=== PATIENT | male | born 1955 | race Caucasian/White ===

== ENCOUNTER 2017-05-16 12:07 | Inpatient (IN) | payer BC ==
[2017-05-16] MEDS: SOLU-Medrol 125 MG VIAL IVP SCH ×3 (14:16→21:48)
[2017-05-16 14:21] LABS: ABG BASE EXCESS 2.6 mmol/L (-2.0-2.0); ABG HCO3 27.9 mmol/L (22-26)
[2017-05-16 14:22] LABS: ABG ALLEN TEST POS
[2017-05-16 14:27] VITALS: BMI 30.8
[2017-05-16] MEDS: LEVAQUIN PREMIX IV 750 MG 750 MG/150 ML BAG IV SCH (15:04)
[2017-05-16] MEDS: NS 1000 ML 1,000 ML IV SCH (15:05)
[2017-05-16] MEDS: ROBITUSSIN DM PO SCH ×3 (15:05→20:12)
[2017-05-16 15:33] LABS: BASOPHILS % (AUTO) 0.6 % (0.2-1.0); EOSINOPHILS # (AUTO) 0.5 x10^3/uL (0.0-0.2); EOSINOPHILS % (AUTO) 7.4 % (0.9-2.9); HEMATOCRIT 44.6 % (42.0-54.0); LYMPHOCYTES # (AUTO) 2.1 X10^3/uL (1.3-2.9); LYMPHOCYTES % (AUTO) 28.8 % (21.0-51.0); MEAN CORPUSCULAR HEMOGLOBIN 27.7 pg (27.0-34.0); MEAN CORPUSCULAR HGB CONC 33.7 g/dL (33.0-35.0); MEAN CORPUSCULAR VOLUME 82.2 fL (80.0-100.0); MEAN PLATELET VOLUME 8.2 fL (7.4-11.0); MONOCYTES # (AUTO) 0.8 x10^3/uL (0.3-0.8); MONOCYTES % (AUTO) 10.7 % (0.0-13.0); NEUTROPHILS # (AUTO) 3.8 x10^3/uL (2.2-4.8); NEUTROPHILS % (AUTO) 52.5 % (42.0-75.0); PLATELET COUNT 194 X10^3/uL (150.0-450.0); RED BLOOD COUNT 5.42 X10^6/uL (4.7-6.0); RED CELL DISTRIBUTION WIDTH 14.2 % (11.6-16.5); WHITE BLOOD COUNT 7.3 X10^3/uL (3.6-10.0)
--- NOTE | 2017-05-16 15:39 | RAD ---
Examination: Chest, PA and lateral views History: Possible pneumonia, cough Findings: Heart size normal with clear right chest. Surgical findings of CABG. The left cardiac antionette n is indistinct and partly obscured. There is no consolidation, pneumothorax or large pleural effusio n. Impression: Postsurgical findings. Pulmonary distortion in the left lower lung may represent chronic scarring or a more acute process. Follow-up suggested to determine chronicity or resolution. Reported By:
[2017-05-16 15:42] LABS: ALANINE AMINOTRANSFERASE 51 Units/L (12-78); ALBUMIN 3.7 g/dL (3.4-5.0); ALKALINE PHOSPHATASE 172 Units/L (46-116); ASPARTATE AMINO TRANSFERASE 27 Units/L (15-37); BLOOD UREA NITROGEN 12 mg/dL (7-18); CALCIUM 8.6 mg/dL (8.5-10.1); CHLORIDE 102 mmol/L (98-107); COR NA(FOR HYPERGLY) 139 mmol/L (136-145); SODIUM 138 mmol/L (136-145); TOTAL PROTEIN 7.2 g/dL (6.4-8.2); eGFR BLACK RACES > 60 (>60); eGFR NON BLACK RACES > 60 (>60)
[2017-05-16] MEDS: XOPENEX 1.25 MG/3 ML NEBULE NEB SCH ×2 (16:06→21:29)
--- NOTE | 2017-05-16 19:42 | DR.H&P ---
H&P - History & Physical for Day of: H&P Date: 05/16/17 - Chief Complaint Chief Complaint: CCC, FEVER - Allergies Allergies/Adverse Reactions: Allergies Allergy/AdvReac Type Severity Reaction Status Date / Time No Known Drug Allergies Allergy Verified 05/16/17 14:03 - History of Present Illness History of Present Illness: 62 WM DIRECT ADMIT FROM DR EAST OFFICE WITH FEVER CCC FOR 2-3 WEEKS. PT TOOK ROUND OF PO ANTIBIOTICS AND HAD IM INJECTIONS WITHOUT IMPROVEMENT. PT CONITNUES TO COUGH AND WHEEZE WITH GENERALIZED. PT HAS PMH OF CAD. PLAN TO FOLLOW PNEUMONIA PROTOCOL, IV ATBX RESP THERAPY - Past Medical History Past Medical History: Coronary Artery Disease - Past Surgical History Surgical History: Cholecystectomy - Family History Family Medical History: Diabetes Mellitus, Cancer, [place], Coronary Artery Disease, Hypertension - Social History Does patient currently use any type of tobacco product: No Have you used tobacco products in the last 12 months: No Type of Tobacco Use: None Does any household member use tobacco: No Alcohol Use: None Drug Use: None - Medications Home Medications: Metoprolol Tartrate 0.5 tab PO BID 05/16/17 [History Confirmed 05/16/17] Omeprazole 2 cap PO DAILY 05/16/17 [History Confirmed 05/16/17] - Review of Systems Constitutional: Fever, Weakness Eyes: No Symptoms Reported ENT: No Symptoms Reported Respiratory: Cough, Shortness of Breath, SOB with Excertion, Wheezing Cardiovascular: No Symptoms Reported Gastrointestinal: No Symptoms Reported Genitourinary: No Symptoms Reported Musculoskeletal: No Symptoms Reported Skin: No Symptoms Reported Neurological: No Symptoms Reported - Physical Exam Vital Signs: Temperature 97.5 F Pulse Rate [Left] 82 Pulse Rate 73 Respiratory Rate 20 Blood Pressure [Left Arm] 136/65 O2 Sat by Pulse Oximetry 97 Oriented: Normal Eyes: Normal Ear: Normal Nose: Normal Throat: Normal Respiratory: Rhonchi Throughout, Wheezes Throughout, RLL Diminished, LLL Diminished Cardiovascular: Normal : Normal Auscultation: Bowel Sounds: Normal Palpation: Normal Tenderness: Normal Skin: Decreased Turgur Musculoskeletal: Normal Psychiatric: Anxiety Affect: Anxious Speech Pattern: Clear - Assessment/Plan (1) Pneumonia Status: Acute Plan: ADMIT IV ABTX, RESP THERAPY. BLOOD SPUTUM CULTURES. BP MONITORING. SUPPLEMENTAL O2,REPEAT AM LABS (2) CAD (coronary artery disease) Status: Acute
[2017-05-16] MEDS: LOPRESSOR TAB 25 MG PO SCH ×2 (20:12→21:16)
[2017-05-16] MEDS: PULMICORT NEB TX 0.5 MG NEB SCH (21:29)
[2017-05-16] MEDS: TUSSIONEX PENNKINETIC SUSP PO PRN (21:48)
[2017-05-16] MEDS: PriLOSEC PO SCH (22:04)
[2017-05-17] MEDS: SOLU-Medrol 125 MG VIAL IVP SCH ×3 (05:30→21:29)
[2017-05-17 05:37] LABS: BASOPHILS # (AUTO) 0.1 X10^3/uL (0.0-0.1); BASOPHILS % (AUTO) 1.5 % (0.2-1.0); EOSINOPHILS % (AUTO) 0.1 % (0.9-2.9); HEMATOCRIT 42.5 % (42.0-54.0); HEMOGLOBIN 14.3 g/dL (13.5-18.0); MEAN CORPUSCULAR HEMOGLOBIN 27.6 pg (27.0-34.0); MEAN CORPUSCULAR HGB CONC 33.6 g/dL (33.0-35.0); MEAN CORPUSCULAR VOLUME 82.2 fL (80.0-100.0); MEAN PLATELET VOLUME 8.2 fL (7.4-11.0); MONOCYTES # (AUTO) 0.1 x10^3/uL (0.3-0.8); MONOCYTES % (AUTO) 1.1 % (0.0-13.0); NEUTROPHILS # (AUTO) 7.7 x10^3/uL (2.2-4.8); NEUTROPHILS % (AUTO) 86.3 % (42.0-75.0); PLATELET COUNT 194 X10^3/uL (150.0-450.0); RED BLOOD COUNT 5.17 X10^6/uL (4.7-6.0); RED CELL DISTRIBUTION WIDTH 14.3 % (11.6-16.5); WHITE BLOOD COUNT 8.9 X10^3/uL (3.6-10.0)
[2017-05-17 05:49] LABS: ALANINE AMINOTRANSFERASE 42 Units/L (12-78); ALBUMIN 3.4 g/dL (3.4-5.0); ALKALINE PHOSPHATASE 157 Units/L (46-116); ASPARTATE AMINO TRANSFERASE 18 Units/L (15-37); BLOOD UREA NITROGEN 12 mg/dL (7-18); CALCIUM 8.3 mg/dL (8.5-10.1); CARBON DIOXIDE 25.6 mmol/L (21-32); CHLORIDE 101 mmol/L (98-107); COR NA(FOR HYPERGLY) 140 mmol/L (136-145); CREATININE 1.11 mg/dL (0.70-1.30); SODIUM 137 mmol/L (136-145); TOTAL PROTEIN 7.1 g/dL (6.4-8.2); eGFR BLACK RACES > 60 (>60); eGFR NON BLACK RACES > 60 (>60)
[2017-05-17] MEDS: LEVAQUIN PREMIX IV 750 MG 750 MG/150 ML BAG IV SCH (08:48)
[2017-05-17] MEDS: LOPRESSOR TAB 25 MG PO SCH ×2 (08:48→20:26)
[2017-05-17] MEDS: ROBITUSSIN DM PO SCH ×4 (08:48→20:25)
[2017-05-17] MEDS: TUSSIONEX PENNKINETIC SUSP PO PRN ×2 (08:48→22:04)
[2017-05-17] MEDS: XOPENEX 1.25 MG/3 ML NEBULE NEB SCH ×4 (09:26→21:39)
[2017-05-17] MEDS: PULMICORT NEB TX 0.5 MG NEB SCH ×2 (09:26→21:39)
[2017-05-17 10:30] LABS: MYCOPLASMA PNEUMONIAE IGM AB NEGATIVE (NEGATIVE)
[2017-05-17] MEDS ORDERED: MUCOMYST 20% 200 MG/ML NEB SCH (16:15)
[2017-05-17] MEDS: PriLOSEC PO SCH (16:45)
[2017-05-17] MEDS ORDERED: PriLOSEC PO SCH (17:30)
[2017-05-17] MEDS: MUCOMYST 20% 200 MG/ML NEB SCH (21:40)
[2017-05-18] MEDS: SOLU-Medrol 125 MG VIAL IVP SCH (05:07)
[2017-05-18 05:41] LABS: BASOPHILS % (AUTO) 0.1 % (0.2-1.0); HEMATOCRIT 41.1 % (42.0-54.0); HEMOGLOBIN 13.7 g/dL (13.5-18.0); LYMPHOCYTES # (AUTO) 1.3 X10^3/uL (1.3-2.9); LYMPHOCYTES % (AUTO) 7.4 % (21.0-51.0); MEAN CORPUSCULAR HEMOGLOBIN 27.7 pg (27.0-34.0); MEAN CORPUSCULAR HGB CONC 33.3 g/dL (33.0-35.0); MEAN CORPUSCULAR VOLUME 83.3 fL (80.0-100.0); MEAN PLATELET VOLUME 8.4 fL (7.4-11.0); MONOCYTES # (AUTO) 0.4 x10^3/uL (0.3-0.8); MONOCYTES % (AUTO) 2.4 % (0.0-13.0); NEUTROPHILS # (AUTO) 15.6 x10^3/uL (2.2-4.8); NEUTROPHILS % (AUTO) 90.1 % (42.0-75.0); PLATELET COUNT 197 X10^3/uL (150.0-450.0); RED BLOOD COUNT 4.94 X10^6/uL (4.7-6.0); RED CELL DISTRIBUTION WIDTH 14.3 % (11.6-16.5); WHITE BLOOD COUNT 17.3 X10^3/uL (3.6-10.0)
[2017-05-18 05:49] LABS: LACTIC ACID 2.6 mmol/L (0.4-2.0)
[2017-05-18 06:16] LABS: PLATELET MORPHOLOGY COMMENT NORMAL (NORMAL)
[2017-05-18 06:24] LABS: ALANINE AMINOTRANSFERASE 36 Units/L (12-78); ALBUMIN 3.3 g/dL (3.4-5.0); ALKALINE PHOSPHATASE 142 Units/L (46-116); ASPARTATE AMINO TRANSFERASE 21 Units/L (15-37); BLOOD UREA NITROGEN 20 mg/dL (7-18); CALCIUM 8.3 mg/dL (8.5-10.1); CARBON DIOXIDE 25.6 mmol/L (21-32); CHLORIDE 103 mmol/L (98-107); COR CA(FOR HYPOALB) 8.9 mg/dL (8.5-10.1); COR NA(FOR HYPERGLY) 141 mmol/L (136-145); CREATININE 1.03 mg/dL (0.70-1.30); SODIUM 138 mmol/L (136-145); TOTAL PROTEIN 6.7 g/dL (6.4-8.2); eGFR BLACK RACES > 60 (>60); eGFR NON BLACK RACES > 60 (>60)
--- NOTE | 2017-05-18 06:44 | RAD ---
Examination: Chest, PA and lateral views History: Pneumonia Comparison reference 05/16/2017 Findings: Continued normal heart size with clear right lung. Indistinct definition of the left cardia c margin again noted with slight pleural thickening peripherally. There is no change in this appearan ce. No new abnormality identified. Impression: No change since 05/16/2017. The findings described in the left lower chest may be chronic . Continued follow-up suggested to confirm stability. Reported By:
[2017-05-18] MEDS: ZITHROMAX INJ 500 MG VIAL 500 MG in NS 250 ML IV 250 ML IV SCH ×2 (08:11→08:20)
[2017-05-18] MEDS: LEVAQUIN PREMIX IV 750 MG 750 MG/150 ML BAG IV SCH (08:11)
[2017-05-18] MEDS: NS 1000 ML 1,000 ML IV SCH ×2 (08:12→13:31)
[2017-05-18] MEDS: LOPRESSOR TAB 25 MG PO SCH ×2 (08:12→21:03)
[2017-05-18] MEDS: ROBITUSSIN DM PO SCH ×4 (08:12→21:03)
[2017-05-18] MEDS: MUCOMYST 20% 200 MG/ML NEB SCH ×2 (09:00→20:39)
[2017-05-18] MEDS: PULMICORT NEB TX 0.5 MG NEB SCH ×2 (09:00→20:39)
[2017-05-18] MEDS: XOPENEX 1.25 MG/3 ML NEBULE NEB SCH ×4 (09:00→20:39)
[2017-05-18] MEDS: HumuLIN R SUBCUT PRN ×3 (09:50→21:56)
[2017-05-18] MEDS: MORPHINE SULFATE INJ 2 MG INJ IVP PRN ×2 (09:51→15:16)
[2017-05-18 11:21] LABS: CKMB % 8.5 % (<4); TROPONIN I 0.32 ng/mL (0-1.5)
[2017-05-18 11:24] LABS: CREATINE KINASE MB 8.6 ng/mL (0-4.0)
[2017-05-18] MEDS: SOLU-Medrol 40 MG VIAL IVP SCH ×2 (13:32→23:02)
[2017-05-18 16:50] LABS: CKMB % 5.7 % (<4); TROPONIN I 0.25 ng/mL (0-1.5)
[2017-05-18 16:55] LABS: CREATINE KINASE MB 9.1 ng/mL (0-4.0)
[2017-05-18] MEDS: PriLOSEC PO SCH (18:04)
[2017-05-18 22:21] LABS: TROPONIN I 0.46 ng/mL (0-1.5)
[2017-05-18 22:24] LABS: CREATINE KINASE MB 7.5 ng/mL (0-4.0)
[2017-05-18] MEDS: SNACK - Diabetic Appropriate PO SCH (23:03)
[2017-05-19] MEDS ORDERED: NS 1/2 1000 ML IV 1,000 ML IV ONE (04:05)
[2017-05-19] MEDS ORDERED: NS 250 ML IV 250 ML IV ONE (04:08)
[2017-05-19 05:26] LABS: BASOPHILS # (AUTO) 0.1 X10^3/uL (0.0-0.1); BASOPHILS % (AUTO) 0.5 % (0.2-1.0); HEMOGLOBIN 12.9 g/dL (13.5-18.0); LYMPHOCYTES % (AUTO) 10.7 % (21.0-51.0); MEAN CORPUSCULAR HEMOGLOBIN 27.3 pg (27.0-34.0); MEAN CORPUSCULAR HGB CONC 33.2 g/dL (33.0-35.0); MEAN CORPUSCULAR VOLUME 82.4 fL (80.0-100.0); MEAN PLATELET VOLUME 8.3 fL (7.4-11.0); MONOCYTES # (AUTO) 0.6 x10^3/uL (0.3-0.8); MONOCYTES % (AUTO) 3.4 % (0.0-13.0); NEUTROPHILS # (AUTO) 15.7 x10^3/uL (2.2-4.8); NEUTROPHILS % (AUTO) 85.4 % (42.0-75.0); PLATELET COUNT 200 X10^3/uL (150.0-450.0); RED BLOOD COUNT 4.73 X10^6/uL (4.7-6.0); RED CELL DISTRIBUTION WIDTH 14.5 % (11.6-16.5); WHITE BLOOD COUNT 18.4 X10^3/uL (3.6-10.0)
[2017-05-19] MEDS: SOLU-Medrol 40 MG VIAL IVP SCH ×2 (05:36→13:59)
[2017-05-19 05:48] LABS: ALANINE AMINOTRANSFERASE 29 Units/L (12-78); ALBUMIN 3.1 g/dL (3.4-5.0); ALKALINE PHOSPHATASE 120 Units/L (46-116); ASPARTATE AMINO TRANSFERASE 18 Units/L (15-37); BLOOD UREA NITROGEN 20 mg/dL (7-18); CALCIUM 8.1 mg/dL (8.5-10.1); CHLORIDE 103 mmol/L (98-107); COR CA(FOR HYPOALB) 8.8 mg/dL (8.5-10.1); COR NA(FOR HYPERGLY) 140 mmol/L (136-145); CREATININE 1.01 mg/dL (0.70-1.30); SODIUM 138 mmol/L (136-145); eGFR BLACK RACES > 60 (>60); eGFR NON BLACK RACES > 60 (>60)
[2017-05-19 06:12] LABS: CKMB % 10.2 % (<4); TROPONIN I 0.49 ng/mL (0-1.5)
[2017-05-19 06:16] LABS: CREATINE KINASE MB 5.6 ng/mL (0-4.0)
[2017-05-19] MEDS: MUCOMYST 20% 200 MG/ML NEB SCH ×2 (08:55→20:25)
[2017-05-19] MEDS: XOPENEX 1.25 MG/3 ML NEBULE NEB SCH ×4 (08:56→20:25)
[2017-05-19] MEDS: PULMICORT NEB TX 0.5 MG NEB SCH ×2 (08:56→20:25)
[2017-05-19] MEDS: LEVAQUIN PREMIX IV 750 MG 750 MG/150 ML BAG IV SCH (09:18)
[2017-05-19] MEDS: NS 1000 ML 1,000 ML IV SCH ×2 (09:19→13:59)
[2017-05-19] MEDS: ROBITUSSIN DM PO SCH ×4 (09:19→20:51)
[2017-05-19] MEDS: LOPRESSOR TAB 25 MG PO SCH ×2 (09:19→20:51)
[2017-05-19] MEDS: ZITHROMAX INJ 500 MG VIAL 500 MG in NS 250 ML IV 250 ML IV SCH (09:19)
[2017-05-19] MEDS ORDERED: COLACE CAP 100 MG PO SCH (10:00)
--- NOTE | 2017-05-19 13:56 | CT ---
CT chest without contrast Indication:chest pain Comparison: Chest radiograph performed on previous day Technique: Multiple axial images of the chest were obtained from the thoracic inlet to the upper abdo men without the administration of IV contrast. Findings: The thyroid gland is normal. Heart size is enlarged with previous CABG changes noted. No pericardial effusion. Moderate calcified atherosclerotic disease of the left coronary artery. No enlarged mediast inal or hilar lymphadenopathy. There is a moderate-sized hiatal hernia without discrete mass or parae sophageal adenopathy. There is a large bulla within the medial left upper lobe. There is nodular thic kening of the right minor fissure seen on axial image 36. Remaining right lung is clear. The left montserrat g demonstrates linear consolidation within the left lower lobe most consistent with atelectasis/scarr ing. No focal airspace opacity nodule or mass is identified. Tiny left-sided pleural effusion is note d. No pneumothorax. Imaging of the upper abdomen demonstrates previous cholecystectomy and mild hepatic steatosis. Review of bone windows demonstrates no acute osseous abnormality. Impression: 1.No acute cardiopulmonary abnormality. 2. Moderate size hiatal hernia. 3. Moderate scarring and atelectasis within left lower lobe likely in the setting of prior surgery/tr auma. 4. Tiny left-sided pleural effusion. 5. Cardiomegaly without pericardial effusion. Previous CABG is noted. Reported By:
[2017-05-19] MEDS: PriLOSEC PO SCH (16:43)
[2017-05-19] MEDS: COLACE CAP 100 MG PO SCH (20:50)
[2017-05-19] MEDS: SNACK - Diabetic Appropriate PO SCH (20:51)
[2017-05-19] MEDS: MILK OF MAGNESIA PO SCH (20:51)
[2017-05-20] MEDS: SOLU-Medrol 40 MG VIAL IVP SCH ×4 (06:13→21:03)
[2017-05-20 06:18] LABS: BASOPHILS # (AUTO) 0.1 X10^3/uL (0.0-0.1); BASOPHILS % (AUTO) 0.8 % (0.2-1.0); EOSINOPHILS % (AUTO) 0.2 % (0.9-2.9); HEMATOCRIT 41.4 % (42.0-54.0); HEMOGLOBIN 13.9 g/dL (13.5-18.0); LYMPHOCYTES % (AUTO) 36.2 % (21.0-51.0); MEAN CORPUSCULAR HEMOGLOBIN 27.6 pg (27.0-34.0); MEAN CORPUSCULAR HGB CONC 33.5 g/dL (33.0-35.0); MEAN CORPUSCULAR VOLUME 82.5 fL (80.0-100.0); MONOCYTES # (AUTO) 0.5 x10^3/uL (0.3-0.8); MONOCYTES % (AUTO) 4.9 % (0.0-13.0); NEUTROPHILS # (AUTO) 6.4 x10^3/uL (2.2-4.8); NEUTROPHILS % (AUTO) 57.9 % (42.0-75.0); PLATELET COUNT 193 X10^3/uL (150.0-450.0); RED BLOOD COUNT 5.01 X10^6/uL (4.7-6.0); RED CELL DISTRIBUTION WIDTH 14.6 % (11.6-16.5)
[2017-05-20 06:58] LABS: ALANINE AMINOTRANSFERASE 36 Units/L (12-78); ALBUMIN 3.2 g/dL (3.4-5.0); ALKALINE PHOSPHATASE 126 Units/L (46-116); ASPARTATE AMINO TRANSFERASE 22 Units/L (15-37); BLOOD UREA NITROGEN 20 mg/dL (7-18); CARBON DIOXIDE 31.3 mmol/L (21-32); CHLORIDE 104 mmol/L (98-107); COR CA(FOR HYPOALB) 8.6 mg/dL (8.5-10.1); COR NA(FOR HYPERGLY) 141 mmol/L (136-145); CREATININE 1.02 mg/dL (0.70-1.30); SODIUM 140 mmol/L (136-145); TOTAL PROTEIN 6.5 g/dL (6.4-8.2); eGFR BLACK RACES > 60 (>60); eGFR NON BLACK RACES > 60 (>60)
--- NOTE | 2017-05-20 07:30 | RAD ---
New History: Chest pain, comparison 05/18/2017 Study: Chest one view Findings: PA upright chest labeled 659 hours shows postoperative changes of CABG. The right lung neptali ins clear. TheCardiac silhouette remains enlarged. No pulmonary vascular congestion is seen. There is persistent linear opacity in the left mid lung which may reflect atelectasis or scar. Epicardial pac ing leads are again seen. Impression: 1. No interval change in the appearance of the left chest 2. Linear opacity mid lung, atelectasis versus scar. Reported By:
[2017-05-20] MEDS: PULMICORT NEB TX 0.5 MG NEB SCH ×2 (08:48→21:24)
[2017-05-20] MEDS: MUCOMYST 20% 200 MG/ML NEB SCH (08:49)
[2017-05-20] MEDS: XOPENEX 1.25 MG/3 ML NEBULE NEB SCH ×4 (08:49→21:23)
[2017-05-20] MEDS: LOPRESSOR TAB 25 MG PO SCH ×2 (10:30→20:10)
[2017-05-20] MEDS: ROBITUSSIN DM PO SCH ×4 (10:31→20:10)
[2017-05-20] MEDS: ZITHROMAX INJ 500 MG VIAL 500 MG in NS 250 ML IV 250 ML IV SCH (10:32)
[2017-05-20] MEDS: LEVAQUIN PREMIX IV 750 MG 750 MG/150 ML BAG IV SCH (10:32)
[2017-05-20] MEDS: MILK OF MAGNESIA PO SCH ×2 (13:34→20:12)
[2017-05-20] MEDS: PriLOSEC PO SCH (17:39)
[2017-05-20] MEDS: COLACE CAP 100 MG PO SCH (20:12)
[2017-05-20] MEDS: SNACK - Diabetic Appropriate PO SCH (20:12)
[2017-05-21] MEDS: NS 1000 ML 1,000 ML IV SCH ×2 (02:11→14:19)
[2017-05-21] MEDS: SOLU-Medrol 40 MG VIAL IVP SCH (05:19)
[2017-05-21 06:24] LABS: BASOPHILS % (AUTO) 0.3 % (0.2-1.0); EOSINOPHILS # (AUTO) 0.2 x10^3/uL (0.0-0.2); EOSINOPHILS % (AUTO) 1.8 % (0.9-2.9); HEMOGLOBIN 13.6 g/dL (13.5-18.0); LYMPHOCYTES # (AUTO) 3.7 X10^3/uL (1.3-2.9); LYMPHOCYTES % (AUTO) 33.9 % (21.0-51.0); MEAN CORPUSCULAR HEMOGLOBIN 27.7 pg (27.0-34.0); MEAN CORPUSCULAR HGB CONC 33.9 g/dL (33.0-35.0); MEAN CORPUSCULAR VOLUME 81.6 fL (80.0-100.0); MEAN PLATELET VOLUME 8.8 fL (7.4-11.0); MONOCYTES # (AUTO) 0.5 x10^3/uL (0.3-0.8); MONOCYTES % (AUTO) 5.1 % (0.0-13.0); NEUTROPHILS # (AUTO) 6.4 x10^3/uL (2.2-4.8); NEUTROPHILS % (AUTO) 58.9 % (42.0-75.0); PLATELET COUNT 151 X10^3/uL (150.0-450.0); RED CELL DISTRIBUTION WIDTH 14.3 % (11.6-16.5)
[2017-05-21 06:42] LABS: ALANINE AMINOTRANSFERASE 32 Units/L (12-78); ALKALINE PHOSPHATASE 125 Units/L (46-116); ASPARTATE AMINO TRANSFERASE 19 Units/L (15-37); BLOOD UREA NITROGEN 15 mg/dL (7-18); CHLORIDE 103 mmol/L (98-107); COR CA(FOR HYPOALB) 8.8 mg/dL (8.5-10.1); COR NA(FOR HYPERGLY) 139 mmol/L (136-145); SODIUM 138 mmol/L (136-145); eGFR BLACK RACES > 60 (>60); eGFR NON BLACK RACES > 60 (>60)
[2017-05-21 07:11] LABS: WHITE BLOOD COUNT 10.8 X10^3/uL (3.6-10.0)
[2017-05-21 07:12] LABS: PLATELET MORPHOLOGY COMMENT NORMAL (NORMAL)
--- NOTE | 2017-05-21 07:44 | RAD ---
Exam: Chest, frontal view History: Chest pain Comparison: Previous chest radiograph from 05/20/2017 Finding s: Patient is status post medi an sternotomy. Cardiomediastinal structures are stable. Persistent opacity is seen in the left mid luiz ng which may represent atelectasis or localized airspace disease. These findings are stable. Right luiz ng remains clear. IMPRESSION: No significant interval change since previous exam from 05/20/2017
[2017-05-21] MEDS: PULMICORT NEB TX 0.5 MG NEB SCH (08:10)
[2017-05-21] MEDS: XOPENEX 1.25 MG/3 ML NEBULE NEB SCH (08:10)
[2017-05-21] MEDS: LOPRESSOR TAB 25 MG PO SCH (09:43)
[2017-05-21] MEDS: ROBITUSSIN DM PO SCH ×2 (09:43→14:19)
[2017-05-21] MEDS: LEVAQUIN PREMIX IV 750 MG 750 MG/150 ML BAG IV SCH (09:43)
[2017-05-21] MEDS: ZITHROMAX INJ 500 MG VIAL 500 MG in NS 250 ML IV 250 ML IV SCH (09:43)
[2017-05-21] MEDS: TUSSIONEX PENNKINETIC SUSP PO PRN (10:23)
[2017-05-21] MEDS: MILK OF MAGNESIA PO SCH (11:43)
[2017-05-21 15:17] VITALS: BP 139/88
== END 2017-05-21 14:50 | disposition home or self-care (01) | DRG 179 ==
LOC: UNDOADMIN 12:07 → MED/SURG 12:07
PROVIDERS: ADMIT Internal Medicine; ATTEND Internal Medicine
DX: J15.0 Pneumonia due to Klebsiella pneumoniae (principal); I25.10 Atherosclerotic heart disease of native coronary artery without angina pectoris; I10 Essential (primary) hypertension
CPT/HCPCS: 36415; 36600; 71045; 71046; 71250; 80053; 82550; 82553; 82803; 83036; 83605; 84484; 85025; 86738; 87040; 87070; 87077; 87186; 87205; 93005; 93010; 94640; 94669; 94760; A4222; J0456; J1815; J1956; J2270; J2920; J2930; J7608; J7626